=== PATIENT | male | born 1970 | race Asian ===

== ENCOUNTER 2017-11-12 09:03 | Emergency (ER) | payer BC ==
[2017-11-12] MEDS ORDERED: Sodium Chloride 0.9% 10 ML Syringe FLUSH PRN (10:01)
[2017-11-12] MEDS ORDERED: Sodium Chloride 0.9% 500 ML IV ONE (10:01)
--- NOTE | 2017-11-12 11:35 | EDM.PDOC ---
ED HPI GENERAL MEDICAL PROBLEM - General Chief Complaint: Cardiovascular Problem Stated Complaint: FAST HEART RATE Time Seen by Provider: 11/12/17 09:54 Source of Information: Reports: Patient, RN Notes Reviewed - History of Present Illness INITIAL COMMENTS - FREE TEXT/NARRATIVE: 46 year old male with palpitations off and on for 2 days present again this morning. no chest pain, cough, fever chills. No nausea, vomiting or diarrhea. No hx Htn, CAD or other known medical problems. - Related Data Allergies Allergy/AdvReac Type Severity Reaction Status Date / Time No Known Allergies Allergy Verified 11/12/17 09:19 Home Meds: Home Meds . [No Known Home Meds] 09/06/14 [History] Past Medical History - Past Health History Medical/Surgical History: Denies Medical/Surgical History Social & Family History - Tobacco Use Smoking Status *Q: Current Every Day Smoker Years of Tobacco use: 20 Packs/Tins Daily: 0.2 - Caffeine Use Caffeine Use: Reports: Coffee - Alcohol Use Days Per Week of Alcohol Use: 0 - Recreational Drug Use Recreational Drug Use: No ED ROS GENERAL - Review of Systems Review Of Systems: See Below Constitutional: Denies: Fever, Chills HEENT: Denies: Sinus Problem, Throat Pain Respiratory: Denies: Shortness of Breath, Wheezing, Pleuritic Chest Pain, Cough Cardiovascular: Denies: Chest Pain GI/Abdominal: Denies: Abdominal Pain, Diarrhea, Nausea, Vomiting Musculoskeletal: Reports: No Symptoms Skin: Reports: No Symptoms Neurological: Reports: Dizziness (occasional) ED EXAM, GENERAL - Physical Exam Exam: See Below General Appearance: Alert, No Apparent Distress Eye Exam: Bilateral Eye: PERRL Throat/Mouth: Normal Inspection, Normal Oropharynx Head: Atraumatic. No: Facial Swelling Neck: Supple, Full Range of Motion Respiratory/Chest: No Respiratory Distress, Lungs Clear, Normal Breath Sounds Cardiovascular: Regular Rate, Rhythm GI/Abdominal: Soft, Non-Tender. No: Guarding Back Exam: No: CVA Tenderness (L), CVA Tenderness (R) Extremities: Normal Inspection, Normal Range of Motion. No: Pedal Edema, Leg Pain Neurological: Alert, Oriented, No Motor/Sensory Deficits Skin Exam: Warm, Dry, Normal Color EKG INTERPRETATION EKG Date: 11/12/17 Rhythm: NSR [place]: Normal P-Wave: Present QRS: Normal ST-T: Normal Course - Vital Signs Last Recorded V/S: Last Vital Signs Temp 97.9 F 11/12/17 09:16 Pulse 72 11/12/17 11:49 Resp 16 11/12/17 11:49 BP 108/82 11/12/17 11:49 Pulse Ox 100 11/12/17 11:49 - Orders/Labs/Meds Orders: Active Orders 24 hr Category Date Time Status EKG 12 Lead [EKG Documentation Completion] [RC] STAT Care 11/12/17 10:00 Active Peripheral IV Care [RC] . DIRECTED Care 11/12/17 10:01 Active Peripheral IV Insertion Adult [OM.PC] Stat Oth 11/12/17 10:01 Ordered Labs: Laboratory Tests 11/12/17 11/12/17 Range/Units 10:20 10:20 WBC 6.91 (4.23-9.07) K/mm3 RBC 5.19 (4.63-6.08) M/mm3 Hgb 15.0 (13.7-17.5) gm/L Hct 44.8 (40.1-51.0) % MCV 86.3 (79.0-92.2) fl MCH 28.9 (25.7-32.2) pg MCHC 33.5 (32.2-35.5) g/dl RDW Std Deviation 40.8 (35.1-43.9) fL Plt Count 176 (163-337) K/mm3 MPV 10.6 (9.4-12.3) fl Neut % (Auto) 63.1 (34.0-67.9) % Lymph % (Auto) 21.1 L (21.8-53.1) % [place]y % (Auto) 8.5 (5.3-12.2) % Eos % (Auto) 6.4 (0.8-7.0) Baso % (Auto) 0.9 (0.1-1.2) % Neut # (Auto) 4.36 (1.78-5.38) K/mm3 Lymph # (Auto) 1.46 (1.32-3.57) K/mm3 [place] # (Auto) 0.59 (0.30-0.82) K/mm3 Eos # (Auto) 0.44 (0.04-0.54) K/mm3 Baso # (Auto) 0.06 (0.01-0.08) K/mm3 Sodium 138 (136-145) mEq/L Potassium 3.9 (3.5-5.1) mEq/L Chloride 105 (98-107) mEq/L Carbon Dioxide 27 (21-32) mEq/L Anion Gap 9.9 (5-15) BUN 18 (7-18) mg/dL Creatinine 0.9 (0.7-1.3) mg/dL Est Cr Clr Drug Dosing 91.14 mL/min Estimated GFR (MDRD) > 60 (>60) mL/min BUN/Creatinine Ratio 20.0 H (14-18) Glucose 88 (74-106) mg/dL Calcium 9.0 (8.5-10.1) mg/dL Total Bilirubin 0.4 (0.2-1.0) mg/dL AST 28 (15-37) U/L ALT 38 (16-63) U/L Alkaline Phosphatase 85 (46-116) U/L Troponin I < 0.017 (0.00-0.056) ng/mL Total Protein 7.3 (6.4-8.2) g/dl Albumin 4.0 (3.4-5.0) g/dl Globulin 3.3 gm/dL Albumin/Globulin Ratio 1.2 (1-2) TSH 3rd Generation 1.324 (0.358-3.74) uIU/mL Meds: Medications Discontinued Medications Generic Name Dose Route Start Last Admin Trade Name Freq PRN Reason Stop Dose Admin Sodium Chloride 500 mls @ 999 mls/hr 11/12/17 10:01 11/12/17 10:27 Normal Saline IV 11/12/17 10:31 999 mls/hr .BOLUS ONE Administration Sodium Chloride 10 ml 11/12/17 10:01 11/12/17 10:28 Saline Flush FLUSH 10 ml ASDIRECTED PRN Administration Keep Vein Open - Re-Assessments/Exams Free Text/Narrative Re-Assessment/Exam: 11/12/17 11:54 labs, EKG, trop, tsh all normal, has been in sinus rythm, with fluid rate now down into the 60's, discharge instr. as documented. Departure - Departure Time of Disposition: 11:34 Disposition: Home, Self-Care 01 Condition: Fair Clinical Impression: Heart palpitations Instructions: Palpitations, [id number] Referrals: PCP,None [Primary Care Provider] - Forms: ED Department Discharge Additional Instructions: Your heart and labs have checked out normal while here in the ED at this time. Continue to drink plenty of water to maintain hydration, Follow up clinic if symptoms not resolving, return to ED as needed if symptoms worsening in any way. - My Orders Last 24 Hours: My Active Orders 11/12/17 10:00 EKG 12 Lead [EKG Documentation Completion] [RC] STAT 11/12/17 10:01 Peripheral IV Care [RC] . DIRECTED Peripheral IV Insertion Adult [OM.PC] Stat - Assessment/Plan Last 24 Hours: My Active Orders 11/12/17 10:00 EKG 12 Lead [EKG Documentation Completion] [RC] STAT 11/12/17 10:01 Peripheral IV Care [RC] . DIRECTED Peripheral IV Insertion Adult [OM.PC] Stat
== END 2017-11-12 11:49 | disposition home or self-care (01) ==
LOC: JD.ED 09:03
DX: R00.2 Palpitations (principal); F17.210 Nicotine dependence, cigarettes, uncomplicated
CPT/HCPCS: 36415; 80053; 84443; 84484; 85025; 93005; 96360; 99285; J7040; J7050; 93010; 99284-25